=== PATIENT | female | born 1965 | race Two or more races ===

== ENCOUNTER 2024-11-15 16:57 | Inpatient (IN) | payer MEDICAID, OTHER ==
[~2024-11-15] VITALS: Ht 160 cm; Wt 58.6 kg
--- NOTE | 2024-11-15 17:24 | ED.PDOC ---
GI ASSESSMENT HPI Comments HPI: 59F presents to the Er in a wheelchair and w/ the c/c of N/V. Pt reports on having N/V x2 episodes yesterday w/ diffuse ABD pain. The Pt notes on having brown emesis. Denies Any other Symptoms. Past Medical history: "Fluid in Heart" Past Surgical history: Bilateral Hip Sx Medications: Social History: Denies smoking, ETOH, and drug use. Allergies: NKDA LOZA: ABD PAIN N/V HPI: Poor Historian. Past Medical History: Past Surgical History: REVIEW OF SYSTEMS: CONSTITUTIONAL: Denies acute: fever, diaphoresis, chills, HEAD: Denies acute: headache, photophobia Eyes: Denies acute: Double vision, vision loss, eye pain, eye discharge. EARS: Denies acute: tinnitus, hearing loss, ear discharge, ear pain, THROAT: Denies acute: sore throat, swelling, difficulty swallowing , pain with swallowing, change in voice. NECK: Denies acute: neck pain, neck swelling, stiff neck. HEART: Denies acute : chest pain, palpitations, LUNGS: Denies acute: SOB, wheezing, cough, hemoptysis ABDOMEN: Denies acute: , diarrhea, melena , hematemesis, hematochezia SKIN: Denies acute: rash, redness, lesions, itchiness. EXTREMITIES: Denies acute: calf pain, numbness, tingling, weakness, denies pain in extremity. Denies acute: Low back pain. Neuro: Denies acute: focal neurological deficit, motor or sensory focal neurological deficit, tremors, seizure like activity, confusion, dizziness, change in mental status, loss of bowel or bladder function, cauda equina like symptoms. : Denies acute: dysuria, hematuria, flank pain, increase in urinary frequency. PSYCH: Denies acute: hallucination, suicidal ideation, homicidal ideation. FEMALE: Denies acute: abnormal vaginal bleeding, foul odor, unusual discharge. PHYSICAL EXAM: General: -----[id number]---acute distress, awake and alert. Head: normocephalic, atraumatic. Neck: supple, trachea is midline, no swelling. Throat: Normal phonation. Eyes:, no erythema, no purulent discharge, no proptosis, no icterus. Heart: regular rate, regular rhythm, no significant murmur appreciated. Lungs: no apparent respiratory distress, Able to speak in full sentences. No wheezing, no rhonchi, no crackles. No stridors Clear to auscultation bilaterally. Abdomen: Nonspecific upper abdominal tender to palpation, non distended, soft, no guarding, no rebound, + bowel sounds. Neuro: Awake, Alert, oriented to name, self, situation, follows commands GCS=15. Speech is normal. Skin: no petechia, no purpura, no cyanosis, non-pale, not jaundice. Lower extremities: --no - Pitting edema no deformity, no focal swelling, no calf TTP. Makes eye contact. moves all four extremities. Face: no apparent facial droop. Ambulating in the ED independently. ED COURSE: DISCLAIMER: This medical document was created using an electronic medical record system with voice recognition software and computerized dictation system. Although this do cument has been carefully reviewed, there might still be some phonetic and typographical errors. Occasional wrong-word or "sound-alike" substitutions may have occurred due to the inherent limitations of voice recognition software. These areas are purely typographical due to imperfections of the software programs and do not reflect any compromise in the patient's medical care. Please read the chart carefully and recognize, using context, where these substitutions have occurred. Chief Complaint: Nausea/Vomiting Time Seen by MD: 17:20 Reviewed Notes: Nurses Notes, Medications, Allergies Allergies: Coded Allergies: NO KNOWN ALLERGIES (Unverified , 11/15/24) Home Meds Reported Medications Hydroxyzine Pamoate (Hydroxyzine Pamoate) 25 Mg Cap, 1 CAP PO BID 11/16/24 Duloxetine HCl (Duloxetine HCl) 20 Mg Cap, 1 CAP PO BID 11/16/24 Nifedipine (Nifedipine Er) 60 Mg Tab, 1 TAB PO DAILY 11/16/24 Aspirin (Aspirin Low Dose) 81 Mg Tab, 1 TAB PO DAILY 11/16/24 Pantoprazole Sodium Sesquihydr (Pantoprazole Sodium Dr) 40 Mg Tab, 1 TAB PO DAILY 11/16/24 Gabapentin (Gabapentin) 800 Mg Tab, 1 TAB PO BID 11/16/24 Information Source: Patient Mode of Arrival: Ambulatory Timing: Hours Duration: Since onset, Hours Past Medical History Past Medical History (Other): "Fluid in Heart" Surgical History (Other): Bilateral Hip Sx 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 Was a procedure done?: No GI differential Dx Differential Diagnosis: Other (DDX include Diverticulitis, colitis, gastroenteritis, acute abdomen, SBO, enteritis, constipation, volvulus, appendicitis, Gallbladder disease, choledocolithiasis, ascending cholangitis, pancreatitis, intraAbdominal mass/neoplasm, hepatitis, UTI, pylonephritis, kidney stone, aneurysm, dissection, Inflammatory bowel disease, gastroparesis, ischemic bowel, ovarian torsion, ovarian cyst/mass, tubo-ovarian abscess, PID, STD.) X-Ray, Labs, Meds, VS Vital Signs Date Time Temp Pulse Resp B/P (MAP) Pulse Ox O2 Delivery O2 Flow Rate FiO2 11/15/24 21:03 87 20 98 Room Air* 0 21 11/15/24 21:03 98.1 87 20 155/87 (109) 97 98.1 11/15/24 20:53 78 20 145/78 11/15/24 20:23 89 20 155/70 11/15/24 19:37 98.1 99 18 157/109 (125) 95 98.1 11/15/24 19:00 Room Air* 0 21 11/15/24 16:58 98.3 100 18 129/86 99 98.3 Lab Test 11/15/24 19:24 11/15/24 18:05 11/15/24 17:34 Range/Units Lactic Acid Level 3.5 *H 3.2 *H 0.4-2.0 mmol/L Urine Color Yellow Yellow Urine Clarity Clear Clear Urine pH 7.0 5.0-9.0 Urine Specific Kemp 1.026 1.001-1.035 Urine Protein 3+ H Negative Urine Ketones Trace Negative Urine Blood 1+ H Negative /uL Urine Nitrite Negative Negative Urine Bilirubin Negative Negative Urine Urobilinogen Normal Negative mg/dL Urine Leukocyte Esterase Negative Negative /uL Urine RBC 5 0 - 4 /hpf Urine Microscopic WBC 4 0-5 /HPF Urine Squamous Epithelial Cells Few <5 /hpf Urine Bacteria Few H None Seen /hpf Urine Hyaline Casts Few 0 - 2 /lpf Urine Mucus Few None Seen Urine Glucose Normal Normal mg/dL Urine Opiates Screen Neg NEGATIVE Urine Fentanyl Screen Neg NEGATIVE Urine Barbiturates Screen Neg NEGATIVE Urine Phencyclidine Screen Neg NEGATIVE Urine Amphetamines Screen Neg NEGATIVE Urine Benzodiazepines Screen Neg NEGATIVE Urine Cocaine Screen Neg NEGATIVE Urine Cannabinoids Screen Pos NEGATIVE White Blood Count 16.0 H 4.4-10.8 10^3/uL Red Blood Count 4.67 4.0-5.20 10^6/uL Hemoglobin 14.0 12.2-16.2 g/dL Hematocrit 41.5 36.0-46.0 % Mean Corpuscular Volume 88.8 80.0-100.0 fL Mean Corpuscular Hemoglobin 30.0 28.0-32.0 pg Mean Corpuscular Hemoglobin Concent 33.7 32.0-36.0 g/dL Red Cell Distribution Width 16.9 H 11.8-14.3 % Platelet Count 324 140-450 10^3/uL Mean Platelet Volume 8.6 6.9-10.8 fL Neutrophils (%) (Auto) 85.7 H 37.0-80.0 % Lymphocytes (%) (Auto) 9.7 L 10.0-50.0 % Monocytes (%) (Auto) 4.1 0.0-12.0 % Eosinophils (%) (Auto) 0.0 0.0-7.0 % Basophils (%) (Auto) 0.5 0.0-2.0 % Neutrophils # (Auto) 13.7 H 1.6-8.6 10 ^3/uL Lymphocytes # (Auto) 1.5 0.4-5.4 10 ^3/uL Monocytes # (Auto) 0.7 0-1.3 10 ^3/uL Eosinophils # (Auto) 0 0-0.8 10 ^3/uL Basophils # (Auto) 0.1 0-0.2 10 ^3/uL Nucleated Red Blood Cells 0.1 % Prothrombin Time 10.3 9.3-11.8 sec Prothrombin Time INR 0.97 0.9-1.15 Activated Partial Thromboplast Time 24.5 24.5-34.5 SEC Sodium Level 137 136-145 mmol/L Potassium Level 2.9 L 3.5-5.1 mmol/L Chloride Level 101 98-107 mmol/L Carbon Dioxide Level 24 20-31 mmol/L Anion Gap 12 5-15 Blood Urea Nitrogen 8 L 9-23 mg/dL Creatinine 0.86 0.550-1.02 mg/dL Glomerular Filtration Rate Calc 78 >90 mL/min BUN/Creatinine Ratio 9.3 L 10.0-20.0 Serum Glucose 152 H 74-106 mg/dL Calcium Level 10.5 H 8.7-10.4 mg/dL Total Bilirubin 0.5 0.2-1.0 mg/dL Aspartate Amino Transferase (AST) 33 13-40 U/L Alanine Aminotransferase (ALT) 13 7-40 U/L Alkaline Phosphatase 157 H 46-116 U/L Troponin I High Sensitivity 14 </=34 ng/L Total Protein 10.2 H 5.7-8.2 g/dL Albumin 5.4 H 3.2-4.8 g/dL Lipase 59 H 12-53 U/L Microbiology Date/Time Source Procedure Growth Status 11/15/24 19:24 Blood Blood Culture - Preliminary NO GROWTH AFTER 24 HOURS OF INCUBATION. Resulted 11/15/24 19:15 Blood Blood Culture - Preliminary NO GROWTH AFTER 24 HOURS OF INCUBATION. Resulted [place] [address] Ph: [phone] DIAGNOSTIC IMAGING Diagnostic Imaging Report : [id number] Signed PATIENT: SEBASTIÁN LOZA ACCT: [id number] UNIT: [id number] : 1965 LOC: ER ROOM / BED: / AGE / SEX: 59 / F ADM STATUS: REG ER SERVICE 1706 ORDERING PHYSICIAN: JENNY JAIN DO PROCEDURE(s): ABPL - CT AB PEL WO CON-NO ORAL OR IV REASON: abd pain n/v ORDER NUMBER(s): [id number], ACCESSION NUMBER(s): [id number] COMPUTERIZED TOMOGRAPHY ABDOMEN AND PELVIS WITHOUT CONTRAST REASON FOR EXAM: abd pain n/v COMPARISON: None TECHNIQUE: Spiral scans were acquired from the diaphragm to the symphysis pubis without intravenous contrast administration. 2-D coronal and sagittal reformatted images were provided. Radiation optimization: All CT scans at this facility use at least one of these dose optimization techniques: Automated exposure control mA and/or kV adjustment per patient size (includes targeted exa ms where dose is matched to clinical indication) or iterative reconstruction. RADIATION DOSE: CTDI: 8.57 mGy DLP: 415.49 mGy-cm FINDINGS: The visualized lung bases are clear. There is no pleural effusion. There is small pericardial effusion. The spleen is not enlarged. The liver is normal in size and contour. Evaluation of the abdominal organs is suboptimal in the absence of intravenous contrast. No calcified gallstone is identified. There is no pericholecystic edema. Unenhanced appearance of the pancreas is unremarkable. The adrenal glands are normal. The kidneys are similar in size. There is no hydronephrosis of either kidney. No renal, ureteral, or bladder calculus is identified. 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 The appendix is normal. The uterus is not seen, possibly obscured by streak artifact. The ovaries appear within normal limits. No free fluid is identified. There is no distention of the small bowel. There is no abdominal aortic aneurysm. There is moderate atherosclerosis. No acute osseous abnormality is identified. IMPRESSION: No acute abnormality identified in the abdomen or pelvis within the limitations of severe streak artifact from bilateral hip prostheses. No calcified gallstone. Normal appendix. There is a small pericardial effusion. ATED BY: NARCISO CHAVEZ MD DICTATED DATE/TIME: 11/15/241742 SIGNED BY: NARCISO CHAVEZ MD SIGNED DATE/TIME: 11/15/241742 CC: Time of 1ST Reevaluation: 17:50 Reevaluation 1ST: Unchanged Patient Education/Counseling: Diagnosis, Treatment Family Education/Counseling: No Family Present Comments MDM: patient presented with the above HPI.--abdominal pain nausea and vomiting----workup was initiated. patient was found with the above mentioned diagnosis. the following medications were ordered: please refer to order lists of meds and tests obtained by myself Dr. Jain. Patient ED course and VS have been stabilized. Patient has been reassessed in the ED and remained in a stable condition. Pertinent incidental findings were discussed with the patient and/or family. Patient/family voices understanding and is agreeable with plan. Patient has been observed in the ED adequate length of time to insure improvement/stability. Escalation of care considered: Consideration of escalation to observation or admission Sepsis protocol was initiated. Potassium replacement, patient was given antibiotics and Zofran. Patient was ADMITTED to the medicine team for further evaluation and treatment of their presentation. All the reports of any imaging studies that were ordered by myself were reviewed by myself. SEPSIS Sepsis Screen Date sepsis recognized/suspect: Nov 15, 2024 Time Sepsis recognized/suspect: 1657 Recent Procedure: No On Antibiotic Therapy: No Respiratory Rate >20: No Heart Rate >90: No Temp<36 C (96.8 F) or >38.3 C: No SBP <90 or MAP <65 mmHG: No New Acute Mental Status Change: No Is the patient on CPAP, BIPAP,: No Physician Orders [facility] Closer (11/15/24 ) Electrocardigram (11/15/24 17:06) Ct Ab Pel Wo Con-No Oral Or Iv (11/15/24 17:06) Chest Portable (11/15/24 18:55) Accucheck (11/15/24 18:55) Blood Culture (11/15/24 18:55) Notify Md If Map <65 Or Bp<90 (11/15/24 18:55) If Map<65 Start Vasopressor (11/15/24 18:55) Sepsis Reassesment After Fluid (11/15/24 19:55) Vital Signs Date Time Temp Pulse Resp B/P (MAP) Pulse Ox O2 Delivery O2 Flow Rate FiO2 11/15/24 21:03 87 20 98 Room Air* 0 21 11/15/24 21:03 98.1 87 20 155/87 (109) 97 98.1 11/15/24 20:53 78 20 145/78 11/15/24 20:23 89 20 155/70 11/15/24 19:37 98.1 99 18 157/109 (125) 95 98.1 11/15/24 19:00 Room Air* 0 21 11/15/24 16:58 98.3 100 18 129/86 99 98.3 Laboratory Tests Test 11/15/24 17:34 11/15/24 19:24 Lactic Acid Level 3.2 mmol/L (0.4-2.0) *H 3.5 mmol/L (0.4-2.0) *H White Blood Count 16.0 10^3/uL (4.4-10.8) H Departure 1 Departure Time of Disposition: 18:55 Impression: Primary Impression: Nausea and vomiting Additional Impressions: Abdominal pain Leukocytosis Elevated lactic acid level Hypokalemia Sepsis Disposition: ADMITTED INPATIENT Admit to: Tele Condition: Guarded Discharged With: Self Critical Care Note Critical Care Time?: Yes (1 hr-critical care time only) I personally scribed for JENNY JAIN DO ([email or web address]) on 11/15/24 at 17:24. Electronically submitted by Cruz Ricktets ([email or web address]). I personally scribed for JENNY JAIN DO ([email or web address]) on 11/15/24 at 18:11. Electronically submitted by Cruz Ricketts ([email or web address]). JENNY JAIN DO Nov 15, 2024 17:24
--- NOTE | 2024-11-15 17:45 | DVH ---
COMPUTERIZED TOMOGRAPHY ABDOMEN AND PELVIS WITHOUT CONTRAST REASON FOR EXAM: abd pain n/v COMPARISON: None TECHNIQUE: Spiral scans were acquired from the diaphragm to the symphysis pubis without intravenous c ontrast administration. 2-D coronal and sagittal reformatted images were provided. Radiation optimiza tion: All CT scans at this facility use at least one of these dose optimization techniques: Automated exposure control mA and/or kV adjustment per patient size (includes targeted exams where dose is mat ched to clinical indication) or iterative reconstruction. RADIATION DOSE: CTDI: 8.57 mGy DLP: 415.49 mGy-cm FINDINGS: The visualized lung bases are clear. There is no pleural effusion. There is small pericardial effusi on. The spleen is not enlarged. The liver is normal in size and contour. Evaluation of the abdominal org ans is suboptimal in the absence of intravenous contrast. No calcified gallstone is identified. Ther e is no pericholecystic edema. Unenhanced appearance of the pancreas is unremarkable. The adrenal gl ands are normal. The kidneys are similar in size. There is no hydronephrosis of either kidney. No r enal, ureteral, or bladder calculus is identified. Severe streak artifact from bilateral hip prosthes es degrades evaluation of the pelvis and the distal ureters. The appendix is normal. The uterus is no t seen, possibly obscured by streak artifact. The ovaries appear within normal limits. No free flui d is identified. There is no distention of the small bowel. There is no abdominal aortic aneurysm. There is moderate atherosclerosis. No acute osseous abnormality is identified. IMPRESSION: No acute abnormality identified in the abdomen or pelvis within the limitations of severe streak isabel fact from bilateral hip prostheses. No calcified gallstone. Normal appendix. There is a small pericardial effusion.
[2024-11-15 18:07] LABS: Hematocrit 41.5 % (36.0-46.0); Hemoglobin 14.0 g/dL (12.2-16.2); Mean Corpuscular Hemoglobin 30.0 pg (28.0-32.0); Mean Corpuscular Volume 88.8 fL (80.0-100.0); Nucleated Red Blood Cells % 0.1 %
[2024-11-15 18:16] LABS: Alanine Aminotransferase 13 U/L (7-40); Anion Gap 12 (5-15); BUN/Creatinine Ratio 9.3 (10.0-20.0); Bilirubin, Total 0.5 mg/dL (0.2-1.0); Carbon Dioxide 24 mmol/L (20-31); Chloride 101 mmol/L (98-107); Sodium 137 mmol/L (136-145)
[2024-11-15 18:17] LABS: Albumin 5.4 g/dL (3.2-4.8); Alkaline Phosphatase 157 U/L (46-116); Blood Urea Nitrogen 8 mg/dL (9-23); Calcium 10.5 mg/dL (8.7-10.4); Glucose 152 mg/dL (74-106); Lipase 59 U/L (12-53); Potassium 2.9 mmol/L (3.5-5.1); Total Protein 10.2 g/dL (5.7-8.2)
[2024-11-15 18:46] LABS: Lactic Acid w/Reflex 3.2 mmol/L (0.4-2.0)
[2024-11-15] MEDS: SODIUM CHLORIDE 0.9% 1,000 ML IV ONE ×2 (19:00→19:40)
[2024-11-15] MEDS: ONDANSETRON HCL 4 MG/2 ML VIAL IV ONE ×3 (19:00→23:45)
--- NOTE | 2024-11-15 19:25 | DVH ---
EXAM: XY CHEST PORTABLE CLINICAL HISTORY: sepsis TECHNIQUE: Single AP view of the chest WID: COMPARISON: None FINDINGS: Lines and tubes: None Chest: The heart size and pulmonary vasculature is within normal limits. Mild calcified plaque projects over the aortic arch. No pleural effusion, pneumothorax, or consolidation. The osseous structures are grossly intact. IMPRESSION: 1. No acute cardiopulmonary abnormality.
[2024-11-15] MEDS: POTASSIUM CHL 20 Meq TABLET PO ONE ×2 (19:40→23:45)
[2024-11-15 19:49] LABS: Urine Protein, UAD 3+ (Negative)
[2024-11-15 19:57] LABS: INR 0.97 (0.9-1.15); Partial Thromboplastin Time 24.5 SEC (24.5-34.5); Prothrombin Time 10.3 sec (9.3-11.8)
[2024-11-15] MEDS: KETOROLAC TROMETH 30 MG/ML 1ML VIAL IV ONE (20:22)
[2024-11-15] MEDS: HYDROmorphone HCL 2 MG/ML VL/or syr IV ONE ×2 (20:23→23:45)
[2024-11-15 21:03] VITALS: PULSE 87; RESP 20; O2SAT 98
[2024-11-15] MEDS ORDERED: ONDANSETRON HCL 4 MG/2 ML VIAL IV PRN (21:30)
[2024-11-15] MEDS ORDERED: DOCUSATE SOD 100 MG CAP PO PRN (21:30)
[2024-11-15 21:54] LABS: Cannabinoid Screen, Urine Pos (NEGATIVE); Opiate Scree,Urine Neg (NEGATIVE)
[2024-11-15 21:55] LABS: Amphetamine Screen, Urine Neg (NEGATIVE); Barbiturate Scree,Urine Neg (NEGATIVE); Benzodiazephine Screen, Urine Neg (NEGATIVE); Cocaine Screen, Urine Neg (NEGATIVE); Phencyclidine Screen, Urine Neg (NEGATIVE)
[2024-11-15] MEDS: CEFEPIME 2GM/50ML NS 50 ML IV SCH (22:15)
[2024-11-15] MEDS ORDERED: VANCOMYCIN PER PHARMACY 0 MG IV SCH (22:15)
[2024-11-15] MEDS: VANCOMYCIN 1GM/250ML IV ONE (23:15)
[2024-11-16] VITALS (7 sets, daily range): BP systolic 136–156; BP diastolic 73–98; PULSE 68–87; RESP 16–18; TEMP 98.2–99; O2SAT 97–100
[2024-11-16 00:40] LABS: COVID19 ANTIGEN SOFIA FIA NEGATIVE (NEGATIVE)
[2024-11-16] MEDS: LORazepam 2MG/ML-1ML VIAL IV ONE (03:04)
[2024-11-16] MEDS: LACTATED RINGER'S 1,000 ML IV SCH (03:45)
[2024-11-16] MEDS: PANTOPRAZOLE 40 MG/10 ML VIAL INJ IV ONE (03:45)
--- NOTE | 2024-11-16 03:52 | DVH ---
BIlateral HIP RADIOGRAPH. CLINICAL INDICATION: Hip prosthesis in place-to rule out infection TECHNIQUE: 4 views of the bilateral hip were obtained. FINDINGS: There is no evidence of fracture, subluxation or dislocation.The alignment is within normal limits.The bony mineralization is normal.No radiopaque foreign body is identified. Bilateral hip art hroplasties IMPRESSION: 1. No evidence of acute bony injury.
[2024-11-16 04:39] LABS: Hematocrit 35.9 % (36.0-46.0); Hemoglobin 12.1 g/dL (12.2-16.2); Mean Corpuscular Hemoglobin 30.6 pg (28.0-32.0); Mean Corpuscular Volume 90.6 fL (80.0-100.0); Nucleated Red Blood Cells % 0.2 %
[2024-11-16 04:55] LABS: Alanine Aminotransferase 10 U/L (7-40); Albumin 4.4 g/dL (3.2-4.8); Anion Gap 8 (5-15); BUN/Creatinine Ratio 8.0 (10.0-20.0); Calcium 9.1 mg/dL (8.7-10.4); Carbon Dioxide 24 mmol/L (20-31); Sodium 139 mmol/L (136-145)
[2024-11-16 04:56] LABS: Bilirubin, Total 0.4 mg/dL (0.2-1.0)
[2024-11-16 05:00] LABS: Alkaline Phosphatase 122 U/L (46-116); Blood Urea Nitrogen 6 mg/dL (9-23); Chloride 107 mmol/L (98-107); Glucose 127 mg/dL (74-106); Potassium 2.9 mmol/L (3.5-5.1); Total Protein 8.2 g/dL (5.7-8.2)
[2024-11-16] MEDS ORDERED: MAGNESIUM SULFATE 1GM/100ML 100 ML IV ONE (06:00)
[2024-11-16] MEDS: POTASSIUM EFFERVESENT TAB 25 MEQ PO ONE (06:11)
--- NOTE | 2024-11-16 07:58 | DVHHPRES ---
History of Present Illness Resident Creating Document: TRUPTI HOOKER RESIDENT History of Present Illness 59-year-old female with past medical history of hypertension, dyslipidemia, chronic constipation, schizophrenia/bipolar disorder and bilateral hip prosthesis surgery presented with complaints of cough, vomiting and abdominal pain. The patient states that she vomited 2 times at home and 2 times in the ER. She states that her abdominal pain is 6 on 10 in intensity, sharp and continuous. She says that she had similar abdominal pain 3 weeks ago which lasted for 3 days. Patient is confused and is not a good historian. Family history: Patient denies Social history: Patient denies alcohol and smoking, admits to occasional use of marijuana Home medication: Patient does not have her medication list, reconcile home medications Allergic history: Patient denies Review of Systems Review of Systems General: patient denies fever, fatigue, weaknes, sweating, any recent changes in appetite and weight HEENT: No headaches, visiual changes, hearing loss, tinnitus, nasal congestion and discharge, and sore throat. Cardiovascular: Denies chest pain, palpitations, dyspnea on exertion, orthopnea, or claudication. Respiratory: No cough, and wheezing. Gastrointestinal: Complains of vomiting and abdominal pain Genitourinary: No dysuria, hematuria, discharge, frequency, urgency, nocturia, incontinence, and urinary retention. Endocrine: No heat or cold intolerance, polydipsia, polyuria, and polyphagia. Neurological: No dizziness, extremity weakness and numbness, tremors, gait disturbance, seizures, and memory impairment. Psychiatric: Denies depression, anxiety,or insomnia. Musculoskeletal: Denies neck pain, stiffness and swelling, back pain, muscle weakness, joint pain, stiffness, swelling, or limited range of motion. Skin: No rashes, itching, skin lesion, changes in hair, nail, skin texture and breast. Hematologic/Lymphatic: Denies easy bruising, bleeding tendencies, or lymph node enlargement. Allergies: Coded Allergies: NO KNOWN ALLERGIES (Unverified , 11/15/24) Medications Current Medications Medications Dose Ordered Sig/Pilar Route Start Time Stop Time Status Last Admin Dose Admin Acetaminophen 325 mg Q4HP PRN PO 11/15/24 21:30 Acetaminophen/ Hydrocodone Bitart 1 tab Q4HP PRN PO 11/15/24 21:30 Ondansetron HCl 4 mg Q4HP PRN IV 11/15/24 21:30 Docusate Sodium 100 mg BIDPRN PRN PO 11/15/24 21:30 Cefepime HCl 50 ml @ 12.5 mls/hr Q8HR IV 11/15/24 22:15 11/16/24 05:38 12.5 MLS/HR Vancomycin HCl 0 ml @ 0 mls/hr UD IV 11/15/24 22:15 UNV Lactated Ringer's 1,000 ml @ 75 mls/hr [id number] IV 11/16/24 03:45 Pantoprazole Sodium 40 mg DAILY IV 11/16/24 10:00 Exam Vital Signs Vital Signs Date Time Temp Pulse Resp B/P (MAP) Pulse Ox O2 Delivery O2 Flow Rate FiO2 11/16/24 03:23 98.1 80 20 150/87 (108) 97 98.1 11/15/24 21:03 Room Air* 0 21 Exam General Appearance: Patient is confused, not oriented to time, Cooperative, mild distress HEENT: Atraumatic, PERRLA, EOMI, Mucous membrane moist/pink Respiratory: Clear to auscultation, Normal air movement Cardiovascular: Regular rate, Normal S1, Normal S2, No murmurs, no chest wall tenderness Abdominal: Diffuse abdominal tenderness present Extremities: No clubbing, No cyanosis, No edema, Normal pulses, No tenderness/swelling Skin: No rashes, No breakdown, No significant lesion Neuro: Normal gait, Normal speech, Strength at 5/5 X4 ext, Normal tone, Sensation intact, Cranial nerves 3-12 NL, Reflexes 2+ Psych/Mental Status: Anxious Labs/Xrays Labs Test 11/16/24 04:00 11/15/24 23:50 11/15/24 22:41 11/15/24 21:50 Range/Units White Blood Count 10.7 # 4.4-10.8 10^3/uL Red Blood Count 3.97 L 4.0-5.20 10^6/uL Hemoglobin 12.1 L 12.2-16.2 g/dL Hematocrit 35.9 #L 36.0-46.0 % Mean Corpuscular Volume 90.6 80.0-100.0 fL Mean Corpuscular Hemoglobin 30.6 28.0-32.0 pg Mean Corpuscular Hemoglobin Concent 33.8 32.0-36.0 g/dL Red Cell Distribution Width 16.4 H 11.8-14.3 % Platelet Count 238 140-450 10^3/uL Mean Platelet Volume 8.5 6.9-10.8 fL Neutrophils (%) (Auto) 68.4 37.0-80.0 % Lymphocytes (%) (Auto) 18.9 10.0-50.0 % Monocytes (%) (Auto) 12.2 H 0.0-12.0 % Eosinophils (%) (Auto) 0.1 0.0-7.0 % Basophils (%) (Auto) 0.4 0.0-2.0 % Neutrophils # (Auto) 7.3 1.6-8.6 10 ^3/uL Lymphocytes # (Auto) 2.0 0.4-5.4 10 ^3/uL Monocytes # (Auto) 1.3 0-1.3 10 ^3/uL Eosinophils # (Auto) 0 0-0.8 10 ^3/uL Basophils # (Auto) 0 0-0.2 10 ^3/uL Nucleated Red Blood Cells 0.2 % Sodium Level 139 136-145 mmol/L Potassium Level 2.9 L 3.5-5.1 mmol/L Chloride Level 107 98-107 mmol/L Carbon Dioxide Level 24 20-31 mmol/L Anion Gap 8 5-15 Blood Urea Nitrogen 6 L 9-23 mg/dL Creatinine 0.75 0.550-1.02 mg/dL Glomerular Filtration Rate Calc 92 >90 mL/min BUN/Creatinine Ratio 8.0 L 10.0-20.0 Serum Glucose 127 H 74-106 mg/dL Calcium Level 9.1 8.7-10.4 mg/dL Magnesium Level 1.6 1.6-2.6 mg/dL Total Bilirubin 0.4 0.2-1.0 mg/dL Aspartate Amino Transferase (AST) 27 13-40 U/L Alanine Aminotransferase (ALT) 10 7-40 U/L Alkaline Phosphatase 122 H 46-116 U/L Total Protein 8.2 5.7-8.2 g/dL Albumin 4.4 3.2-4.8 g/dL Influenza Type A Antigen Negative Negative Influenza Type B Antigen Negative Negative SARS-CoV-2 Antigen (Rapid) Negative NEGATIVE Erythrocyte Sedimentation Rate 52 H 0-20 mm/hr Lactic Acid Level 1.6 0.4-2.0 mmol/L C-Reactive Protein High Sensitivity 0.67 <1.0 mg/dL Test 11/15/24 18:05 11/15/24 17:34 Range/Units Urine Color Yellow Yellow Urine Clarity Clear Clear Urine pH 7.0 5.0-9.0 Urine Specific [place] 1.026 1.001-1.035 Urine Protein 3+ H Negative Urine Ketones Trace Negative Urine Blood 1+ H Negative /uL Urine Nitrite Negative Negative Urine Bilirubin Negative Negative Urine Urobilinogen Normal Negative mg/dL Urine Leukocyte Esterase Negative Negative /uL Urine RBC 5 0 - 4 /hpf Urine Microscopic WBC 4 0-5 /HPF Urine Squamous Epithelial Cells Few <5 /hpf Urine Bacteria Few H None Seen /hpf Urine Hyaline Casts Few 0 - 2 /lpf Urine Mucus Few None Seen Urine Glucose Normal Normal mg/dL Urine Opiates Screen Neg NEGATIVE Urine Fentanyl Screen Neg NEGATIVE Urine Barbiturates Screen Neg NEGATIVE Urine Phencyclidine Screen Neg NEGATIVE Urine Amphetamines Screen Neg NEGATIVE Urine Benzodiazepines Screen Neg NEGATIVE Urine Cocaine Screen Neg NEGATIVE Urine Cannabinoids Screen Pos NEGATIVE Prothrombin Time 10.3 9.3-11.8 sec Prothrombin Time INR 0.97 0.9-1.15 Activated Partial Thromboplast Time 24.5 24.5-34.5 SEC Troponin I High Sensitivity 14 </=34 ng/L Lipase 59 H 12-53 U/L SEPSIS Sepsis Screen Date sepsis recognized/suspect: Nov 15, 2024 Time Sepsis recognized/suspect: 2105 Recent Procedure: No On Antibiotic Therapy: No Respiratory Rate >20: No Heart Rate >90: No Temp<36 C (96.8 F) or >38.3 C: No SBP <90 or MAP <65 mmHG: No New Acute Mental Status Change: No Is the patient on CPAP, BIPAP,: No Physician Orders Mrsa Screen (11/16/24 03:29) Blood Alcohol (11/16/24 03:29) Strict Aspiration Precautions (11/16/24 03:36) Npo Except Ice Chips (11/16/24 03:36) Npo (Nothing By Mouth) Diet (11/16/24 Breakfast) Lactated Ringer's (11/16/24 03:45) Pantoprazole (Protonix) (11/16/24 10:00) Magnesium Sulfate 1gm/100ml (11/16/24 08:00) Vital Signs Date Time Temp Pulse Resp B/P (MAP) Pulse Ox O2 Delivery O2 Flow Rate FiO2 11/16/24 03:23 98.1 80 20 150/87 (108) 97 98.1 11/16/24 00:15 78 18 144/86 11/15/24 23:53 98.1 80 20 133/87 (102) 98 98.1 11/15/24 23:45 80 20 150/88 Laboratory Tests Test 11/15/24 21:50 11/16/24 04:00 Lactic Acid Level 1.6 mmol/L (0.4-2.0) White Blood Count 10.7 10^3/uL (4.4-10.8) # Medications Medications Dose Ordered Sig/Pilar Route Start Time Stop Time Status Last Admin Dose Admin Cefepime HCl 50 ml @ 12.5 mls/hr Q8HR IV 11/15/24 22:15 11/16/24 05:38 12.5 MLS/HR Hydromorphone HCl 1 mg ONCE ONCE IV 11/15/24 20:15 11/15/24 20:16 DC 11/15/24 20:23 1 MG Hydromorphone HCl 1 mg ONCE ONCE IV 11/15/24 23:45 11/15/24 23:46 DC 11/15/24 23:45 1 MG Ketorolac Tromethamine 30 mg ONCE ONCE IV 11/15/24 20:00 11/15/24 20:01 DC 11/15/24 20:22 30 MG Lorazepam 1 mg ONCE ONCE IV 11/16/24 03:00 11/16/24 03:01 DC 11/16/24 03:04 1 MG Ondansetron HCl 4 mg ONCE ONCE IV 11/15/24 20:15 11/15/24 20:16 DC 11/15/24 20:23 4 MG Ondansetron HCl 4 mg ONCE ONCE IV 11/15/24 23:45 11/15/24 23:46 DC 11/15/24 23:45 4 MG Potassium Bicarbonate 50 meq ONCE ONCE PO 11/16/24 06:00 11/16/24 06:01 DC 11/16/24 06:11 50 MEQ Potassium Chloride 20 meq ONCE ONCE PO 11/15/24 23:45 11/15/24 23:48 DC 11/15/24 23:45 20 MEQ Vancomycin HCl 250 ml @ 250 mls/hr ONCE ONCE IV 11/15/24 23:15 11/16/24 00:14 DC 11/15/24 23:15 250 MLS/HR Assessment/Plan Assessment/Plan Assessment #Severe sepsis #Neutrophilic leukocytosis with lactic acidosis #Moderate hypokalemia #Acute pericardial effusion, mild #History of bilateral hip prosthesis #Possible Cyclic vomiting syndrome due to cannabis #Possible aspiration pneumonia #History of essential hypertension #History of dyslipidemia #History of chronic constipation #History of spinal stenosis Plan Vancomycin and cefepime IV fluids Potassium supplemented Follow up potassium levels Reconcile home meds Follow urine culture and sputum culture COVID and influenza sent NPO Assess need for psychiatric consult Barriers to discharge: Medical management in progress. Case discussed with Dr. Chatterjee Code status: Full code. Complex patient care discussion needed total 37 minutes Plan discussed with: Patient My Orders Orders - TRUPTI HOOKER Procedure Category Date Status Time Admit ADMIT 11/15/24 Transmitted 21:21 Allergies SKINNY 11/15/24 In Process 21:21 Code Status CODE 11/15/24 Transmitted 21:21 Acetaminophen Tablet PHA 11/15/24 In Process (Tylenol Tablet) 21:30 Hydrocodone-Acet PHA 11/15/24 In Process 5/325mg Tab ([place] 21:30 Ondansetron Hcl PHA 11/15/24 In Process (Zofran) 21:30 Docusate Sodium PHA 11/15/24 In Process Capsule (Colace 21:30 Echo 2d Mode Cardiac US 11/15/24 Logged DOP 21:21 Condition: Serious SKINNY 11/15/24 In Process 21:21 L Hip Complete Xray XY 11/15/24 Resulted 21:40 R Hip Complete Xray XY 11/15/24 Resulted 21:40 Urine Bacterial BRITTANIE 11/15/24 Uncollected Culture 21:40 Respiratory Culture BRITTANIE 11/15/24 Uncollected W/ Gs 21:40 Cefepime 2gm/50ml Ns PHA 11/15/24 In Process (Maxipime 2gm/50ml) 22:15 Vancomycin Per PHA 11/15/24 Pending Pharmacy 22:15 Date of Service: Nov 16, 2024 Billing Provider: MELVI CHATTERJEE MD Common Visit Codes: [id number] INP/OBS CARE (HIGH) Secondary Visit Codes: [id number] CARE PLAN 30 MINUTES TRUPTI HOOKER RESIDENT Nov 16, 2024 07:52
[2024-11-16] MEDS: PANTOPRAZOLE 40 MG/10 ML VIAL INJ IV SCH (09:48)
[2024-11-16] MEDS: MAGNESIUM SULFATE 1GM/100ML 100 ML IV ONE (11:55)
[2024-11-16] MEDS: HYDROcodone-ACET 5/325MG TAB PO PRN (11:57)
--- NOTE | 2024-11-16 14:44 | DVHPN2 ---
Subjective Overnight events noted. Patient is here for nausea and vomiting, CT abdomen and pelvis shows no evidence of any acute pathology. 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 Medications Current Medications Medications Dose Ordered Sig/Pilar Route Start Time Stop Time Status Last Admin Dose Admin Acetaminophen 325 mg Q4HP PRN PO 11/15/24 21:30 Acetaminophen/ Hydrocodone Bitart 1 tab Q4HP PRN PO 11/15/24 21:30 11/16/24 11:57 1 TAB Ondansetron HCl 4 mg Q4HP PRN IV 11/15/24 21:30 Docusate Sodium 100 mg BIDPRN PRN PO 11/15/24 21:30 Cefepime HCl 50 ml @ 12.5 mls/hr Q8HR IV 11/15/24 22:15 11/16/24 05:38 12.5 MLS/HR Vancomycin HCl 0 ml @ 0 mls/hr UD IV 11/15/24 22:15 Lactated Ringer's 1,000 ml @ 75 mls/hr [id number] IV 11/16/24 03:45 11/16/24 11:56 75 MLS/HR Pantoprazole Sodium 40 mg DAILY IV 11/16/24 10:00 11/16/24 09:48 40 MG Laboratory Results Laboratory Tests 11/16/24 04:00 Chemistry Test 11/15/24 17:34 11/16/24 04:00 Albumin 5.4 g/dL (3.2-4.8) H 4.4 g/dL (3.2-4.8) Calcium Level 10.5 mg/dL (8.7-10.4) H 9.1 mg/dL (8.7-10.4) Total Protein 10.2 g/dL (5.7-8.2) H 8.2 g/dL (5.7-8.2) Magnesium Level 1.6 mg/dL (1.6-2.6) Coagulation Test 11/15/24 17:34 Prothrombin Time 10.3 sec (9.3-11.8) Prothrombin Time INR 0.97 (0.9-1.15) Activated Partial Thromboplast Time 24.5 SEC (24.5-34.5) Lipid panel Test 11/15/24 17:34 Lipase 59 U/L (12-53) H LFT Test 11/15/24 17:34 11/16/24 04:00 Alanine Aminotransferase (ALT) 13 U/L (7-40) 10 U/L (7-40) Alkaline Phosphatase 157 U/L (46-116) H 122 U/L (46-116) H Aspartate Amino Transferase (AST) 33 U/L (13-40) 27 U/L (13-40) Total Bilirubin 0.5 mg/dL (0.2-1.0) 0.4 mg/dL (0.2-1.0) Urinalysis Test 11/15/24 18:05 Urine Color Yellow (Yellow) Urine Clarity Clear (Clear) Urine pH 7.0 (5.0-9.0) Urine Specific [place] 1.026 (1.001-1.035) Urine Protein 3+ (Negative) H Urine Ketones Trace (Negative) Urine Blood 1+ /uL (Negative) H Urine Nitrite Negative (Negative) Urine Bilirubin Negative (Negative) Urine Urobilinogen Normal mg/dL (Negative) Urine Leukocyte Esterase Negative /uL (Negative) Urine RBC 5 /hpf (0 - 4) Urine Microscopic WBC 4 /HPF (0-5) Urine Squamous Epithelial Cells Few /hpf (<5) Urine Bacteria Few /hpf (None Seen) H Urine Hyaline Casts Few /lpf (0 - 2) Urine Mucus Few (None Seen) Urine Glucose Normal mg/dL (Normal) Assessment/Plan Assessment/Plan 59-year-old female with a known history of hypertension dyslipidemia, chronic back cannabis use who presented to the hospital with a nausea and vomiting found to have 1. Nausea and vomiting suspect cyclic vomiting syndrome 2. Chronic marijuana use 3. Hypertension 4. Dyslipidemia -start clear liquid diet and advanced as tolerated, marijuana cessation counseling, discharge plan. Plan discussed with: Patient My Orders Orders - ISABEL BEAR MD Procedure Category Date Status Time Clear Liq Diet DIET 11/16/24 Transmitted Dinner Date of Service: Nov 16, 2024 Billing Provider: ISABEL BEAR MD Common Visit Codes: [id number] INP/OBS CARE(MOD) ISABEL BEAR MD Nov 16, 2024 14:44
[2024-11-16] MEDS ORDERED: PANT-62 PO (22:15)
[2024-11-16] MEDS ORDERED: DULO1CAP4 PO (22:15)
[2024-11-16] MEDS ORDERED: GABA800T97 PO (22:15)
[2024-11-16] MEDS ORDERED: NIFE1TAB30 PO (22:15)
[2024-11-16] MEDS ORDERED: HYDR1CAP27 PO (22:15)
[2024-11-16] MEDS ORDERED: ASPI-325 PO (22:15)
[2024-11-17 01:00] VITALS: BP 150/117; PULSE 85; RESP 18; TEMP 98.2; O2SAT 100
[2024-11-17] MEDS: ACETAMINOPHEN 325 MG TAB PO PRN (02:04)
[2024-11-17 05:00] VITALS: BP 167/97; PULSE 66; RESP 18; TEMP 97.9; O2SAT 99
[2024-11-17 07:07] LABS: Hematocrit 42.1 % (36.0-46.0); Hemoglobin 13.9 g/dL (12.2-16.2); Mean Corpuscular Hemoglobin 30.8 pg (28.0-32.0); Mean Corpuscular Volume 93.3 fL (80.0-100.0); Nucleated Red Blood Cells % 0.1 %
[2024-11-17 08:00] VITALS: PULSE 43; RESP 18; O2SAT 100
[2024-11-17 09:00] VITALS: BP 125/62; PULSE 43; RESP 18; TEMP 98.7; O2SAT 100
[2024-11-17 13:00] VITALS: BP 166/95; PULSE 68; RESP 19; TEMP 98.4; O2SAT 96
--- NOTE | 2024-11-17 16:00 | DVHSR ---
APPROVED REPORT EXAM: Two-dimensional and M-mode echocardiogram with Doppler and color Doppler. Blood Pressure: 167/97 mmHg INDICATION To rule out structural heart disease RISK FACTORS Height: 5'3", Weight: 129 DIMENSIONS LVDd3.8 (3.8-5.7cm)LA (2D)3.3 (1.9-4.0cm)Aortic Root3.4 (2.0-3.7cm) LVDs2.3 (2.5-4.0cm)LA (MM) (1.9-4.0cm)Aortic Cusp Exc1.8 (1.5-2.0cm) EF (%) 60.0 (55-70%)Rt. Atrium3.5 (1.9-4.0cm)Asc. Aorta cm IVSd0.7 (0.7-1.1cm)RV (D)3.5 (1.8-2.4cm) PWd1.0 (0.7-1.1cm) Mitral Valve MitralMitral Stenosis E wave0.64m/sMV Mean GR.mmHg A wave1.01m/sMV Peak GR.mmHg E/A ratio0.62D MVAcm2 DECEL [id number] 1/2 Timems Aortic Valve Aortic ValveAortic Stenosis V11.04m/Ashly Mean GR.3mmHg V21.18m/Ashly Peak GR.6mmHg LVOT Diameter1.9 (1.8-2.4cm)Doppler AVA2.50cm2 Pulmonic Valve V21.03m/s Tricuspid Valve TR Velocity3.59m/s [id number] Other Information Technically limited study due to patient position, patient moving during study. Conclusion Sinus rhythm. Technically good study. Mild concentric LVH. Valves are normal. EF of 65% with normal right ventricular function. Ehqkeeng-[id number] tricuspid insufficiency with a right ventricular systolic pressure 50 mmHg consist ent with virdlzid-as-cqmlpm pulmonary hypertension. Small pericardial effusion not hemodynamically significant. No intracardiac masses thrombi or vegetations discernible.
--- NOTE | 2024-11-17 16:35 | DVHDS2 ---
Discharge Summary Date of Admission Nov 15, 2024 at 21:21 Date of Discharge: Nov 17, 2024 Labs/Diagnostic Data: Laboratory Results Test 11/17/24 05:49 11/16/24 10:33 11/16/24 04:00 11/15/24 23:50 White Blood Count 9.0 10^3/uL (4.4-10.8) Red Blood Count 4.51 10^6/uL (4.0-5.20) Hemoglobin 13.9 g/dL (12.2-16.2) Hematocrit 42.1 % (36.0-46.0) Mean Corpuscular Volume 93.3 fL (80.0-100.0) Mean Corpuscular Hemoglobin 30.8 pg (28.0-32.0) Mean Corpuscular Hemoglobin Concent 33.1 g/dL (32.0-36.0) Red Cell Distribution Width 17.4 % (11.8-14.3) Platelet Count 232 10^3/uL (140-450) Mean Platelet Volume 8.5 fL (6.9-10.8) Neutrophils (%) (Auto) 61.9 % (37.0-80.0) Lymphocytes (%) (Auto) 27.0 % (10.0-50.0) Monocytes (%) (Auto) 10.5 % (0.0-12.0) Eosinophils (%) (Auto) 0.3 % (0.0-7.0) Basophils (%) (Auto) 0.3 % (0.0-2.0) Neutrophils # (Auto) 5.5 10 ^3/uL (1.6-8.6) Lymphocytes # (Auto) 2.4 10 ^3/uL (0.4-5.4) Monocytes # (Auto) 0.9 10 ^3/uL (0-1.3) Eosinophils # (Auto) 0 10 ^3/uL (0-0.8) Basophils # (Auto) 0 10 ^3/uL (0-0.2) Nucleated Red Blood Cells 0.1 % Creatinine 0.73 mg/dL (0.550-1.02) Glomerular Filtration Rate Calc 95 mL/min (>90) Random Vancomycin Level 3.6 ug/mL (5-10) Plasma/Serum Blood Alcohol < 3.0 mg/dL (<10) Sodium Level 139 mmol/L (136-145) Potassium Level 2.9 mmol/L (3.5-5.1) Chloride Level 107 mmol/L (98-107) Carbon Dioxide Level 24 mmol/L (20-31) Anion Gap 8 (5-15) Blood Urea Nitrogen 6 mg/dL (9-23) BUN/Creatinine Ratio 8.0 (10.0-20.0) Serum Glucose 127 mg/dL (74-106) Calcium Level 9.1 mg/dL (8.7-10.4) Magnesium Level 1.6 mg/dL (1.6-2.6) Total Bilirubin 0.4 mg/dL (0.2-1.0) Aspartate Amino Transferase (AST) 27 U/L (13-40) Alanine Aminotransferase (ALT) 10 U/L (7-40) Alkaline Phosphatase 122 U/L (46-116) Total Protein 8.2 g/dL (5.7-8.2) Albumin 4.4 g/dL (3.2-4.8) Influenza Type A Antigen Negative (Negative) Influenza Type B Antigen Negative (Negative) SARS-CoV-2 Antigen (Rapid) Negative (NEGATIVE) Test 11/15/24 22:41 11/15/24 21:50 11/15/24 18:05 11/15/24 17:34 Erythrocyte Sedimentation Rate 52 mm/hr (0-20) Lactic Acid Level 1.6 mmol/L (0.4-2.0) C-Reactive Protein High Sensitivity 0.67 mg/dL (<1.0) Urine Color Yellow (Yellow) Urine Clarity Clear (Clear) Urine pH 7.0 (5.0-9.0) Urine Specific [place] 1.026 (1.001-1.035) Urine Protein 3+ (Negative) Urine Ketones Trace (Negative) Urine Blood 1+ /uL (Negative) Urine Nitrite Negative (Negative) Urine Bilirubin Negative (Negative) Urine Urobilinogen Normal mg/dL (Negative) Urine Leukocyte Esterase Negative /uL (Negative) Urine RBC 5 /hpf (0 - 4) Urine Microscopic WBC 4 /HPF (0-5) Urine Squamous Epithelial Cells Few /hpf (<5) Urine Bacteria Few /hpf (None Seen) Urine Hyaline Casts Few /lpf (0 - 2) Urine Mucus Few (None Seen) Urine Glucose Normal mg/dL (Normal) Urine Opiates Screen Neg (NEGATIVE) Urine Fentanyl Screen Neg (NEGATIVE) Urine Barbiturates Screen Neg (NEGATIVE) Urine Phencyclidine Screen Neg (NEGATIVE) Urine Amphetamines Screen Neg (NEGATIVE) Urine Benzodiazepines Screen Neg (NEGATIVE) Urine Cocaine Screen Neg (NEGATIVE) Urine Cannabinoids Screen Pos (NEGATIVE) Prothrombin Time 10.3 sec (9.3-11.8) Prothrombin Time INR 0.97 (0.9-1.15) Activated Partial Thromboplast Time 24.5 SEC (24.5-34.5) Troponin I High Sensitivity 14 ng/L (</=34) Lipase 59 U/L (12-53) Other Laboratory Tests 11/17/24 05:49 11/16/24 04:00 Brief Hx & Hospital Course: 59-year-old female with a known history of hypertension dyslipidemia, chronic back cannabis use who presented to the hospital with a nausea and vomiting found to have cyclic vomiting syndrome. Patient's says that she smokes marijuana NS significant quantity every day. Patient was eventually admitted started on diet patient is currently tolerating diet. Patient has had elevated white count which was suspected secondary to reactive. X-ray hip was done which shows no evidence of any hip prosthesis infection. Patient's remains afebrile blood cultures are are negative. Patient's antibiotics will be discontinued. Patient was given marijuana cessation counseling presence of patient's daughter and patient's mom. Patient is currently understand verbalized understanding and agreeable to plan. Condition at Discharge: Stable Final Diagnosis/Problems List 59-year-old female with a known history of hypertension dyslipidemia, chronic back cannabis use who presented to the hospital with a nausea and vomiting found to have 1. Nausea and vomiting suspect cyclic vomiting syndrome 2. Chronic marijuana use 3. Hypertension 4. Dyslipidemia Discharge Disposition: Home SNF Discharge Will this Physician continue t: No Discharge Instruct/Medications Diet: Cardiac 2g Na,low cholest Activity: No Restrictions, As Tolerated Follow Up/Referral: Follow up with the PCP in 1-2 weeks Medications: Resume home medications. Continued Medications: Aspirin (Aspirin Low Dose) 81 Mg Tab 1 TAB PO DAILY Duloxetine HCl (Duloxetine HCl) 20 Mg Cap 1 CAP PO BID Gabapentin (Gabapentin) 800 Mg Tab 1 TAB PO BID Hydroxyzine Pamoate (Hydroxyzine Pamoate) 25 Mg Cap 1 CAP PO BID Nifedipine (Nifedipine Er) 60 Mg Tab 1 TAB PO DAILY Pantoprazole Sodium Sesquihydr (Pantoprazole Sodium Dr) 40 Mg Tab 1 TAB PO DAILY Scheduled Aspirin (Aspirin Low Dose), 1 TAB PO DAILY, (Reported) Duloxetine HCl (Duloxetine HCl), 1 CAP PO BID, (Reported) Gabapentin (Gabapentin), 1 TAB PO BID, (Reported) Hydroxyzine Pamoate (Hydroxyzine Pamoate), 1 CAP PO BID, (Reported) Nifedipine (Nifedipine Er), 1 TAB PO DAILY, (Reported) Pantoprazole Sodium Sesquihydr (Pantoprazole Sodium Dr), 1 TAB PO DAILY, (Reported) Discharge Statement: "Patient was advised to return to the ER or call 911 if any headaches, dizziness, shortness of breath, chest pain, abdominal pain, bleeding, fevers, or worsening of medical condition. Patient was counseled about treatment plan, medications, possible side effects, patientverbalized understanding. All questions were answered to the best of my ability. This discharge took greater then 30 minutes in planning, reviewing documentation, counseling the patient, and discussing with other team members." ASSESSMENT ASSESSMENT Assessment 59-year-old female with a known history of hypertension dyslipidemia, chronic back cannabis use who presented to the hospital with a nausea and vomiting found to have 1. Nausea and vomiting suspect cyclic vomiting syndrome 2. Chronic marijuana use 3. Hypertension 4. Dyslipidemia Date of Service: Nov 17, 2024 Billing Provider: ISABEL BEAR MD Common Visit Codes: [id number] DISCH DAY >30min ISABEL BEAR MD Nov 17, 2024 16:35
[2024-11-17 17:00] VITALS: BP 150/91; PULSE 78; RESP 18; TEMP 98.4; O2SAT 100
[2024-11-17] MEDS ORDERED: VANCOMYCIN 750MG KIT 100 ML IV SCH (20:00)
== END 2024-11-17 18:49 | disposition home or self-care (01) | DRG 720 ==
LOC: ER 16:57 → OVERFLOW 21:21 → EAST 11-16 18:36
PROVIDERS: ATTEND Emergency Medicine
DX: A41.9 Sepsis, unspecified organism (principal); J69.0 Pneumonitis due to inhalation of food and vomit; E87.20 Acidosis, unspecified; I31.39 Other pericardial effusion (noninflammatory); J18.9 Pneumonia, unspecified organism; E78.5 Hyperlipidemia, unspecified; E87.6 Hypokalemia; F12.90 Cannabis use, unspecified, uncomplicated; I10 Essential (primary) hypertension; R11.15 Cyclical vomiting syndrome unrelated to migraine; F31.9 Bipolar disorder, unspecified; F20.9 Schizophrenia, unspecified; K59.09 Other constipation; R65.20 Severe sepsis without septic shock; Z96.643 Presence of artificial hip joint, bilateral; Z79.899 Other long term (current) drug therapy
CPT/HCPCS: 36415; 71045; 73502; 74176; 80053; 80202; 80307; 80320; 81001; 82565; 83605; 83690; 83735; 84132; 84484; 85025; 85610; 85652; 85730; 86141; 87040; 87426; 87804; 93306; 96365; 96375; 99291; G0378; J0692; J1885; J2405; J2470